=== PATIENT | female | born 1990 | race Caucasian/White ===

== ENCOUNTER 2022-10-29 12:22 | Outpatient (REF) | payer MEDICAID, SELFPAY ==
--- NOTE | 2022-10-29 12:10 | LABIA_PTH ---
PATIENT: Lo Resendiz LOC: [facility] U#:[id number] AGE/SX: 32/F ROOM: RE10/29/[address]: Annetta Pratt MD : 1990 BED: DIS: 10/29/2022 SPEC #: [id number] RECD: 10/29/22 12:44 STATUS: CHRSITIANO REQ #: [id number] EDGARDO: 10/29/22 12:[address]: Annetta Pratt DEPT: Surgical Specimen RECD BY: Brenda López ENTERED: 10/29/22 12:45 SP TYPE: LABIA OTHR DR: Unknown,Unknown Tissues: 1 - LABIA BX Procedures: GROSS AND MICRO LEVEL 3 Comments: [id number]
[2022-10-30 14:08] LABS: Chlamydia Result Negative (Negative); GC Result Negative (Negative)
== END 2022-10-29 12:23 | disposition home or self-care (01) ==
LOC: LBN 12:22
PROVIDERS: Visit Provider Obstetrics & Gynecology
DX: Z11.3 Encounter for screening for infections with a predominantly sexual mode of transmission (principal); N90.7 Vulvar cyst
CPT/HCPCS: 87491; 87591; 88305; 88304

== ENCOUNTER 2024-03-17 20:31 | Outpatient (REF) | payer MEDICAID, SELFPAY ==
[2024-03-19 14:05] LABS: Chlamydia Result Negative (Negative); GC Result Negative (Negative)
== END 2024-03-17 20:32 | disposition home or self-care (01) ==
LOC: LBN 20:31
PROVIDERS: Visit Provider Obstetrics & Gynecology Gynecology
DX: N89.8 Other specified noninflammatory disorders of vagina (principal); Z11.3 Encounter for screening for infections with a predominantly sexual mode of transmission
CPT/HCPCS: 87491; 87591; 87480; 87510; 87660

== ENCOUNTER 2024-07-13 09:45 | Outpatient (REF) | payer MEDICAID, SELFPAY ==
[2024-07-14 12:28] LABS: Chlamydia Result Negative (Negative); GC Result Negative (Negative)
== END 2024-07-13 09:46 | disposition home or self-care (01) ==
LOC: LBN 09:45
PROVIDERS: Visit Provider Nurse Practitioner Women's Health
DX: N76.0 Acute vaginitis (principal); Z11.3 Encounter for screening for infections with a predominantly sexual mode of transmission
CPT/HCPCS: 87491; 87591; 87480; 87510; 87660